=== PATIENT | female | born 2000 | race Caucasian/White ===

== ENCOUNTER 2025-02-02 07:06 | Outpatient (CLI) | payer BC, SELFPAY ==
--- NOTE | 2025-02-02 07:38 | US_ITS ---
FINAL REPORT TECHNIQUE: Multiple transverse and longitudinal images CLINICAL HISTORY: BILLURIA COMPARISON: None FINDINGS: There is a 12 mm in diameter gallstone present in the gallbladder, without evidence of wall thickening. No biliary ductal dilatation is appreciated. No fluid collections are seen. There is a rounded hyperechoic focus in the anterior aspect of the liver measuring 21 mm in size, that may represent a hemangioma. There is a second hyperechoic focus in the anterior aspect of the left lobe, favored to represent focal fatty infiltration. There is a central hepatic hyperechoic focus, ill-defined, also likely to represent focal fatty infiltration. Limited portions of the right kidney are unremarkable. IMPRESSION: No findings of biliary obstruction. Hyperechoic foci in the liver likely represent hemangioma or focal fatty infiltration. Uncomplicated cholelithiasis. Reviewed, Interpreted and Dictated by An Pinto MD Transcribed by Scarlett Ramirez Authenticated and [facility]
== END 2025-02-02 23:59 | disposition home or self-care (01) ==
PROVIDERS: PCP Physician Assistant; Visit Provider Physician Assistant
DX: R82.2 Biliuria (principal)
CPT/HCPCS: 76705

== ENCOUNTER 2025-02-25 11:04 | Outpatient (CLI) | payer BC, SELFPAY ==
[2025-02-25 11:16] VITALS: BMI 34.2
[2025-02-25 11:42] LABS: Basophils # 0.1 K/mm3 (0-0.2); Eosinophils # 0.1 K/mm3 (0.0-0.4); Eosinophils % 1.8 % (0.1-12.0); Hematocrit 35.6 % (37.0-47.0); Hemoglobin 12.5 g/dL (12.2-16.2); Lymphocytes # 2.4 K/mm3 (0.7-4.5); Mean Corpuscular HGB Conc 35.1 g/dL (31.8-35.4); Mean Corpuscular Hemoglobin 31.5 pg (27.0-31.2); Mean Corpuscular Volume 89.7 fl (81-99); Mean Platelet Volume 10.3 fl (7.4-10.4); Monocytes # 0.4 K/mm3 (0.1-1.0); Monocytes % 5.8 % (1.7-9.3); Neutrophils # 3.2 K/mm3 (1.8-7.8); Neutrophils % 52.2 % (37.0-80.0); Nucleated Red Blood Cells # 0 10^3/uL; Nucleated Red Blood Cells % 0 %; Platelet Count 320 K/mm3 (142-424); Red Blood Count 3.97 M/mm3 (4.20-5.40); Red Cell Distribution Width 11.9 % (11.5-17.5); Red Cell Distribution Width-SD 38.9 fL; White Blood Count 6.1 K/mm3 (4.8-10.8)
[2025-02-25 11:45] LABS: Urine Pregnancy, HCG Qual. Negative (Negative)
[2025-02-25 11:48] LABS: Chloride 106 mmol/L (98-107); Potassium 3.9 mmoL/L (3.5-5.1); Sodium 137 mmol/L (136-145)
[2025-02-25 11:51] LABS: Anion Gap 11.9 mEq/L (5-15); Blood Urea Nitrogen 10 mg/dl (7-17); Carbon Dioxide 23 mmol/L (22.0-30.0); Creatinine Clearance Estimated 195 mL/min (50-200); Estimated Glomerular Filt Rate 124 ml/min (>60); GFR (African American) 150 ML/MIN (>60)
[2025-02-25 11:52] LABS: Calcium 9.1 mg/dl (8.4-10.2); Glucose 87 mg/dl (74-100)
== END 2025-02-25 23:59 | disposition home or self-care (01) ==
LOC: PREOP 11:05
PROVIDERS: Nurse Anesthetist, Certified Registered; PCP Physician Assistant; Visit Provider Surgery
DX: K80.20 Calculus of gallbladder without cholecystitis without obstruction (principal)
CPT/HCPCS: 80048; 81025; 85025

== ENCOUNTER 2025-03-04 06:02 | Day surgery (SDC) | payer BC, SELFPAY ==
[2025-02-25 11:37] VITALS: BMI 34.2
[2025-03-04] VITALS (11 sets, daily range): BP systolic 102–132; BP diastolic 51–89; PULSE 62–95; RESP 16–21; TEMP 36.1–36.6; O2SAT 95–99
[2025-03-04] MEDS: 0.9 % SODIUM CHLORIDE 1000ML 1,000 ML 25 ML IV (06:25)
--- NOTE | 2025-03-04 07:06 | P.PNANES_ITS ---
[facility] Disclaimer: The information contained in this section may have been updated after the patient was seen, as this information can be updated by other users. Medical History No significant past medical history Surgical History History of tonsillectomy and adenoidectomy History of laparoscopic appendectomy History of colonoscopy Family History Other Family history of Alzheimer disease Family history of diabetes mellitus Family history of heart disease Social History Smoking Status: Current every day smoker tobacco type: e-cigarettes alcohol intake: never substance use type: denies use current occupational status: employed Travel in the last 8 weeks: None [facility] Anesthesia Checklist Patient Identification Patient Identification: Arm Band Structural Data Admitted From: Home Planned Operative Procedure/s: Laparoscopic Cholecystectomy Consent for Planned Operative Procedure(s) Verified: Yes Verified Documents: Surgical Consent and History and Physical NPO Status Verified Time NPO: 00:00 Additional verifications Anesthesia Reactions: No Hx Blood Transfusions: No Blood Transfusion Reaction: No Airway Assessment Mallampati Score:: Class II C-Spine Mobility Assessed: Yes TMJ Mobility Assessed: Yes Dentition: Good Dentition Neurological Assessment Level of Consciousness: Awake, Alert and Appropriate Anesthesia Plan Anesthesia Risk discussed: Yes Anesthesia Plan: Verified ASA Class: II Anesthesia Type: General
[2025-03-04] MEDS: CEFAZOLIN SODIUM 2 GM in 0.9 % SODIUM CHLORIDE 100 ML IV (07:50)
--- NOTE | 2025-03-04 08:10 | EXP.OP.NOTE ---
Date of procedure: 03/04/25 Pre-op Diagnosis:: Symptomatic cholelithiasis Post-op Diagnosis:: Chronic calculus cholecystitis Procedure performed:: Laparoscopic cholecystectomy Surgeon:: Alan Burrell MD Anesthesia: GETViolet Estimated blood loss (mL): 15 Operative findings:: Pericholecystic fat stranding Fairly severe infundibular thickening Operative note:: After informed consent was obtained, the patient was taken to the operating room and placed in the supine position. General anesthesia was induced and the abdomen was prepped and draped in a sterile fashion. After infiltration with local anesthetic an infraumbilical incision was made. A Veress needle was placed in position. The abdomen was insufflated. A 5 mm optical trocar was placed in position. Under direct visualization, a 12 mm trocar was placed in the subxiphoid position and 2 additional 5 mm trocars were placed in the right upper quadrant. The gallbladder was elevated up and over the liver margin. The tissue around the cystic duct was carefully dissected. 3 clips were placed proximally and the duct was transected with harmonic rissa. Harmonic rissa were then utilized to dissect the gallbladder away from the liver margin with careful attention to the control of the cystic artery. The gallbladder was placed in a retrieval bag and removed through the subxiphoid trocar site. The right upper quadrant was thoroughly irrigated. No active bleeding or bile leak was noted. Fascia at the subxiphoid trocar site was reapproximated utilizing the NeoClose device. The remaining trocars were removed. All wounds were irrigated and skin was closed with 4-0 Monocryl in a subcuticular fashion. Steri-Strips were applied. The patient's anesthetic agents were reversed and extubation was completed prior to transfer to recovery in stable condition. Condition: stable Disposition: PACU Specimens:: Gallbladder and contents Complications:: No immediate
--- NOTE | 2025-03-04 08:22 | P.PNANES_ITS ---
[facility] Anesthesia Record Part I Anesthesia Record I Intake, IV Amount: 900 Hydration: Adequate Estimated blood loss (mL): 10 Urine output (mL): 0 Blood Pressure: 118/51 SaO2: 95 Pulse Rate: 95 Airway Patency: Patent Respiratory Rate: 18 Temperature: 97 F Patient is:: Awake, Drowsy and Stable Stable to PACU at:: 08:28
[2025-03-04] MEDS: HYDROMORPHONE 2MG/ML SYRINGE 0.5 MG IV ×2 (08:37→08:47)
--- NOTE | 2025-03-04 13:38 | EXP.ANES.II ---
[facility] Anesthesia Record Part II Anesthesia Record Part II Discharge Time: 08:58 Destination: Surgical Day Care (OP Surgery) PACU nurse assessment reviewed?: Yes Patient Condition:: Good Anesthesia Complications:: None Swallowing reflex intact?: Yes Airway Patency: Patent Cyanosis?: No Blood Pressure: 129/68 SaO2: 99 Respiratory Rate: 18 Pulse Rate: 86 Temperature: 97.3 F Mental Status: Alert & Oriented Pain level:: 6 Nausea and/or vomitting:: None Intake, IV Amount: 0 Hydration: Adequate
== END 2025-03-04 09:45 | disposition home or self-care (01) ==
PROVIDERS: PCP Physician Assistant; Visit Provider Surgery
PROC: 0FT44ZZ Resection of Gallbladder, Percutaneous Endoscopic Approach (ICD-10-PCS; CPT 47562; principal; 2025-03-04 07:30)
DX: K80.10 Calculus of gallbladder with chronic cholecystitis without obstruction (principal)
CPT/HCPCS: 47562; 96374; J3490; J0690; J1100; J1171; J1200; J2250; J2405; J3010; J7030